=== PATIENT | female | born 1940 | race Caucasian/White ===

== ENCOUNTER → 2021-03-23 10:51 | Outpatient (CLI) | payer MEDICARE, SELFPAY ==
--- NOTE | ~2021-03-23 | XR_ITS ---
XR lumbar spine min 4V DATE: 03/23/2021 11:05 INDICATION: Sciatica TECHNIQUE: AP, lateral, bilateral oblique views and coned lateral lumbosacral view COMPARISON: None FINDINGS: There is diffuse osteopenia. There is severe degenerative disc disease and retrolisthesis at L1-2. There is mild degenerative disease at L2-3, moderately severe degenerative disc disease at L3-4-4 and L4-5 and severe degenerative disc disease at L5-S1. There is degenerative change at the apophyseal joints with associated grade 1 anterolisthesis at L4-5 . No spondylolisthesis is noted. The sacroiliac joints appear normal. There is calcification of the abdominal aorta, without apparent aneurysm. IMPRESSION: Extensive degenerative changes Diffuse osteopenia Reviewed, dictated and finalized at location A.
== END ==
PROVIDERS: PCP Family Medicine; Visit Provider Family Medicine
DX: M54.30 Sciatica, unspecified side (principal); M85.88 Other specified disorders of bone density and structure, other site
CPT/HCPCS: 72110

== ENCOUNTER → 2021-04-12 09:57 | Outpatient (CLI) | payer MEDICARE, SELFPAY ==
--- NOTE | ~2021-04-12 | US_ITS ---
EXAMINATION: US abdomen limited EXAM DATE: 04/12/2021 10:18 INDICATION: R74.8 - Abnormal levels of other serum enzymes . TECHNIQUE: Multiple grayscale and Doppler images of the abdomen right upper quadrant were obtained (b y a technologist who performed the scan) and subsequently reviewed. There is no prior study for taye sharma. FINDINGS: The pancreatic head and body are normal in appearance. The pancreatic tail is not visualized. There is echogenic liver parenchyma, hepatic steatosis. There are no focal liver lesions identified. Th ere is no evidence of intrahepatic biliary duct dilation. Portal venous flow was seen in the hepatop edal, normal direction and has normal Doppler waveform. No right-sided hydronephrosis. Incidental le ft renal cyst measuring 4.6 cm. Common bile duct measures 3 mm, which is normal. The gallbladder wall is normal in thickness, with ex pected amount of distention. No sonographic evidence of pericholecystic fluid. There is no cholelit hiases. Technologist performing exam reports patient did not demonstrate sonographic Loepz's sign. Please note that this sign is less reliable in patients who have received pain medication. IMPRESSION: 1. Hepatic steatosis. Reviewed, dictated and finalized at location B. IMPRESSION: 1. Hepatic steatosis.
== END ==
PROVIDERS: PCP Family Medicine; Visit Provider Family Medicine
DX: R74.8 Abnormal levels of other serum enzymes (principal); K76.0 Fatty (change of) liver, not elsewhere classified
CPT/HCPCS: 76705

== ENCOUNTER 2022-03-01 10:57 | Outpatient (CLI) | payer MEDICARE, SELFPAY ==
--- NOTE | ~2022-03-01 | MR_ITS ---
EXAMINATION: MR lumbar spine wo con DATE: 03/01/2022 11:47 INDICATION: Back pain. TECHNIQUE: Magnetic resonance imaging (MRI) of the lumbar spine was performed without intravenous con trast. Sequences included sagittal T2-weighted FSE, sagittal T2-weighted FS FSE, sagittal T1-weighted FSE, and axial T2-weighted FSE. COMPARISON: Lumbar spine radiographs 03/23/2021 FINDINGS: There is a 5.1 cm cyst in left kidney. There is 3 degrees levocurvature of lumbar spine. Th ere is 5 mm retrolisthesis of L1 on L2, 3 mm retrolisthesis of L2 on L3, and 6 mm anterolisthesis of L4 on L5. Vertebral body heights are normal. There is severely decreased disc height from L1-L2 throu gh L3-L4, moderately decreased disc height at L4-L5, and severely decreased disc height at L5-S1. The re is interbody fusion at L5-S1. Epidural lipomatosis is noted. There is ligamentum flavum hypertroph y at the disc levels from L1-L2 through L4-L5. The distal spinal cord signal intensity is normal. The conus medullaris is at L1-L2. The following disc levels are specifically discussed: L1-L2: The disc is bulging. There is moderate bilateral facet joint osteoarthritis. There is moderate bilateral neural foraminal stenosis. There is mild central canal stenosis. L2-L3: The disc is bulging. There is severe bilateral facet joint osteoarthritis. There is mild bilat eral neural foraminal stenosis. There is mild central canal stenosis. L3-L4: The disc is bulging and has an annular fissure. There is severe bilateral facet joint osteoart hritis. There may be ankylosis of the facet joints. There is mild bilateral neural foraminal stenosis . There is mild central canal stenosis. L4-L5: There is an extrusion centered in left central zone. There is severe bilateral facet joint ost eoarthritis. There is moderate bilateral neural foraminal stenosis. There is severe central canal margarita nosis. L5-S1: The disc is bulging. There is moderate bilateral facet joint osteoarthritis. There is mild chuy ateral neural foraminal stenosis. There is mild central canal stenosis. IMPRESSION: 1. Severe lumbar spondylosis. Reviewed, dictated and finalized at location A.
== END 2022-03-01 10:58 | disposition home or self-care (01) ==
PROVIDERS: PCP Family Medicine; Visit Provider Family Medicine
DX: M47.817 Spondylosis without myelopathy or radiculopathy, lumbosacral region (principal); M48.07 Spinal stenosis, lumbosacral region
CPT/HCPCS: 72148

== ENCOUNTER 2022-06-08 09:28 | Outpatient (CLI) | payer MEDICARE, SELFPAY ==
[2022-06-12 11:09] LABS: Kit Draw Collected
== END 2022-06-08 09:29 | disposition home or self-care (01) ==
PROVIDERS: PCP Family Medicine; Visit Provider Physician Assistant
DX: E78.2 Mixed hyperlipidemia (principal); I10 Essential (primary) hypertension; R73.03 Prediabetes; Z79.899 Other long term (current) drug therapy
CPT/HCPCS: 36415

== ENCOUNTER 2022-07-11 15:53 | Outpatient (CLI) | payer MEDICARE, SELFPAY ==
[2022-07-11 19:16] LABS: Alanine Aminotransferase 34 U/L (6-35); Albumin Level 4.4 g/dL (3.5-5.1); Alkaline Phosphatase 72 U/L (38-126); Anion Gap 12 mmol/L (8-16); Aspartate Amino Transferase 48 U/L (14-36); Bilirubin,Total 0.8 mg/dL (0.2-1.3); Blood Urea Nitrogen 25 mg/dL (7-17); Calcium 9.6 mg/dL (8.4-10.2); Carbon Dioxide 28 mmol/L (22-30); Chloride 103 mmol/L (98-107); Estimated Glomerular Filt Rate 60; Glucose 91 mg/dL (65-110); Potassium 3.9 mmol/L (3.4-5.0); Sodium 143 mmol/L (137-145)
== END 2022-07-11 15:54 | disposition home or self-care (01) ==
LOC: ANHGOSHLAB 15:56
PROVIDERS: PCP Family Medicine; Visit Provider Physician Assistant
DX: R74.8 Abnormal levels of other serum enzymes (principal)
CPT/HCPCS: 36415; 80053

== ENCOUNTER 2022-07-25 14:29 | Outpatient (CLI) | payer MEDICARE, SELFPAY ==
[2022-07-25 19:49] LABS: Anion Gap 5 mmol/L (8-16); Blood Urea Nitrogen 19 mg/dL (7-17); Calcium 9.6 mg/dL (8.4-10.2); Carbon Dioxide 33 mmol/L (22-30); Chloride 98 mmol/L (98-107); Estimated Glomerular Filt Rate 60; Glucose 102 mg/dL (65-110); Potassium 3.7 mmol/L (3.4-5.0); Sodium 136 mmol/L (137-145)
== END 2022-07-25 14:30 | disposition home or self-care (01) ==
LOC: ANHGOSHLAB 14:31
PROVIDERS: PCP Family Medicine; Visit Provider Family Medicine
DX: N18.9 Chronic kidney disease, unspecified (principal)
CPT/HCPCS: 36415; 80048

== ENCOUNTER 2022-09-14 11:00 | Outpatient (RCR) | payer MEDICARE, SELFPAY ==
--- NOTE | 2022-06-20 12:47 | PTOPEVAL1 ---
Assessment and note entered by Dulce Galeas, PT Evaluation Information Assessment Status Evaluation Reported Pain Level Pain Score 7 LLE,2 RLE: Self Report Additional Pain Score Comments currently on a prednisone step down, states cannot tell a difference yet after 4 days. Assessment PT Clinical Summary Pt presents w/ c/o pain in legs L>R and left glute mostly. Was seeing pain management for this and received a nerve block and steroid shots. Pt states she did not feel any improvement with this and after her last shot felt worse with her leg weakness and balance. Today she demo's poor glute med and max strength, poor core with abdominal hernia present, multiple areas of increased muscle tone and tenderness related to pelvic alignment deficit, abnormal gait with (+) Trendelenburg R>L. Pt reports her prior level was walking without AD, and assisted in the cooking and cleaning at her and her daughter's home as well as shopping with her daughter. Pt goals are to get back to this level of function, thus she will benefit from physical therapy to address above deficits, improve pain, and meet patient functional goals. Plan of Care Interventions Electrical Stimulation,Gait Training,Hot Pack/Cold Pack,Manual Therapy,Neuro Re-education,Patient/ Caregiver Educati,Therapeutic Activities, Therapeutic Exercise,Self-Care/Home Management, Ultrasound PT Services Indicated Yes Treatment Frequency and 2xweekly x 4 weeks Duration These treatments will address the objective and functional deficits as defined above. The patient will be advanced safely and appropriately in order for the patient to progress towards his/her prior level of function. Additional exercises will be introduced and as well as a comprehensive home exercise program upon discharge, if needed, ?to ensure carryover of functional gains achieved in the clinic. This treatment plan has been reviewed and agreement upon by the patient.
--- NOTE | 2022-07-05 13:48 | PCPTNOTE ---
Patient requested no have appointment back to back therefore canceled appointment this date.
--- NOTE | 2022-09-06 09:26 | PCPTNOTE ---
Patient called and canceled due to weather and UTI.
--- NOTE | 2022-09-14 11:41 | PTOPDC ---
Assessment and note entered by Dulce Galeas, PT Assessment Status Discharge Subjective Information Pt reports is doing well. States is not really having a lot of pain just a discomfort across lower back. States first in the is stiff overall. Has even decreased her Delta-9 gummy intake to as needed. 95% improved overall. No leg pain, just weakness sometimes. Rosario in the morning. Reported Pain Level Pain Score 0,0,1: Self Report Assessment PT Clinical Summary Pt presents for discharge evaluation. She has attended therapy consistently, most recently shifting to mechanical traction focus in therapy. She cont to demo overall weakness, however reports she is musch more active,leg pain has resolved, back pain is a discomfort that only increases to 4/10 at worst rating. While pt has not met her therapy goals for strength or LE ROM, she shows greatly improved lumbar ROM without issue. With the progress pt has made, she requests to be finished with therapy at this time. She was educated in continuation of fitness activities such as aquatics and increasing walking times as well as when to return to therapy if needed. Thus pt is being discharged from therapy services.
== END 2022-09-14 14:31 | disposition home or self-care (01) ==
LOC: ANHGOSHPT 11:00
PROVIDERS: PCP Family Medicine; Visit Provider Physician Assistant
DX: M54.30 Sciatica, unspecified side (principal)
CPT/HCPCS: 97012; 97014; 97110; 97112; 97116; 97140; 97162; 97530; G0283

== ENCOUNTER 2022-12-26 09:28 | Outpatient (CLI) | payer MEDICARE, SELFPAY ==
[2022-12-26 11:57] LABS: Kit Draw Collected
== END 2022-12-26 09:29 | disposition home or self-care (01) ==
LOC: ANHGOSHLAB 09:31
PROVIDERS: PCP Family Medicine; Visit Provider Family Medicine
DX: E78.2 Mixed hyperlipidemia (principal); G60.9 Hereditary and idiopathic neuropathy, unspecified; I10 Essential (primary) hypertension; R73.03 Prediabetes
CPT/HCPCS: 36415

== ENCOUNTER 2023-07-17 13:19 | Outpatient (CLI) | payer MEDICARE, SELFPAY ==
[2023-07-17 19:55] LABS: Appearance Urine Cloudy (Clear); Bacteria Urine 4+ /hpf; Bilirubin Urine Negative (Negative); Blood Urine Negative (Negative); Color Urine Yellow (Yellow); Glucose Urine UA Negative (Negative); Ketones Urine Negative (Negative); Leukocyte Esterase Ur 1+ LEU/UL (Negative); Nitrate Urine Positive (Negative); Non Pathogenic Casts 0-2; Protein Urine Negative (Negative); RBC Urine 0-2 /hpf (0-2); Specific Grav Ur 1.013 (1.001-1.035); Squamous Epithelial Cell Urine Moderate /hpf (Few); WBC Urine 21-50 /hpf; pH Urine 6.5 (5.0-9.0)
[2023-07-17 20:08] LABS: Add Urine Microscopic? YES
== END 2023-07-17 13:20 | disposition home or self-care (01) ==
LOC: ANHGOSHLAB 13:20
PROVIDERS: PCP Family Medicine; Visit Provider Physician Assistant
DX: R39.9 Unspecified symptoms and signs involving the genitourinary system (principal)
CPT/HCPCS: 81001; 87086; 87088

== ENCOUNTER 2024-01-29 08:57 | Outpatient (CLI) | payer MEDICARE, SELFPAY ==
[2024-01-29 12:48] LABS: Basophils Absolute Auto 0.1 K/mm3 (0.0-0.1); Basophils Percent Auto 0.8 % (0.2-1.2); Eosinophils Absolute Auto 0.2 K/mm3 (0-0.3); Eosinophils Percent Auto 2.4 % (0-4.4); Hematocrit 32.2 % (37.0-47.0); Hemoglobin 9.9 g/dL (12.0-15.0); Immature Granulocyte Absolute 0.01 K/mm3 (0.00-0.031); Immature Granulocyte Percent A 0.2 % (0-0.5); Lymphocytes Percent Auto 30.9 % (18.3-44.2); Mean Corpuscular HGB Conc 30.7 g/dl (32-36); Mean Corpuscular Hemoglobin 27.2 pg (26-34); Mean Corpuscular Volume 88.5 fl (80-100); Mean Platelet Volume 10.1 fl (7.4-10.4); Monocytes Absolute Auto 0.5 K/mm3 (0.1-0.6); Monocytes Percent Auto 8.1 % (2.6-8.5); Neutrophils Absolute Auto 3.5 K/mm3 (1.3-6.7); Neutrophils Percent Auto 57.6 % (45.5-73.1); Platelet Count Result 405 k/mm3 (150-375); Red Blood Count 3.64 M/mm3 (4.2-5.4); Red Cell Distribution Width 13.4 % (11.5-14.5); White Blood Count 6.2 K/mm3 (4.5-10.0)
[2024-01-29 13:05] LABS: Cholesterol 184 mg/dL (0-200); HDL Direct 39 mg/dL; Triglycerides 163 mg/dL (<150)
[2024-01-29 13:07] LABS: Alanine Aminotransferase 29 U/L (6-35); Albumin Level 4.5 g/dL (3.5-5.1); Alkaline Phosphatase 74 U/L (38-126); Anion Gap 9 mmol/L (4-12); Aspartate Amino Transferase 69 U/L (14-36); Bilirubin,Total 0.7 mg/dL (0.2-1.3); Blood Urea Nitrogen 26 mg/dL (7-17); Calcium 9.6 mg/dL (8.4-10.2); Carbon Dioxide 28 mmol/L (22-30); Chloride 103 mmol/L (98-107); Estimated Glomerular Filt Rate 43; Glucose 101 mg/dL (65-110); Potassium 4.2 mmol/L (3.4-5.0); Sodium 140 mmol/L (137-145)
[2024-01-29 13:15] LABS: LDL Cholesterol Direct 109 mg/dL
[2024-01-29 18:29] LABS: Hemoglobin A1C 5.8 % (<5.7)
== END 2024-01-29 08:58 | disposition home or self-care (01) ==
PROVIDERS: PCP Family Medicine; Visit Provider Family Medicine
DX: E78.5 Hyperlipidemia, unspecified (principal); R73.03 Prediabetes; R39.9 Unspecified symptoms and signs involving the genitourinary system
CPT/HCPCS: 36415; 80053; 80061; 83036; 85025; 87077; 87086; 87088; 87186

== ENCOUNTER 2024-01-29 09:17 | Outpatient (CLI) | payer MEDICARE, SELFPAY ==
--- NOTE | ~2024-01-29 | XR_ITS ---
XR cervical spine 4-5V Ordering provider: Alejandra Richardson MD History: . no injury neck pain with bilateral arm numbness for years . Comparison: None. FINDINGS: VERTEBRAL BODIES: Normal height and alignment. No visible fracture or subluxation. The dens is intact . DISK SPACES: Narrowing of the disc C3-C4, C4-C5, C5-C6, C6-C7 and C7-T1. Multilevel facet joint disease. Multilevel uncovertebral joint osteoarthritic changes. . PARASPINOUS SOFT TISSUES: No prevertebral soft tissue swelling. IMPRESSION: No acute osseous abnormality cervical spine. Reviewed, dictated and finalized at location A.
== END 2024-01-29 09:18 ==
PROVIDERS: PCP Family Medicine; Visit Provider Family Medicine
DX: M54.12 Radiculopathy, cervical region (principal)
CPT/HCPCS: 72050